=== PATIENT | male | born 1955 | race African-American/Black ===

== ENCOUNTER 2017-11-16 08:31 | Inpatient (IN) | payer SELFPAY ==
[2017-11-16 09:06] LABS: ADD MAN DIFF? NO
[2017-11-16] MEDS: IPRATRPIUM/ALBUTEROL 0.5/2.5MG 3 ML NEBU. NEB ×4 (09:06→19:14)
[2017-11-16 09:08] LABS: BASO % 0 % (0-3); EOS % 0 % (0-3); HEMOGLOBIN 13.2 g/dL (13.0-17.5); LYMPH # 2.7 x10^3/uL (1.0-4.8); LYMPH % 16 % (24-48); MEAN CORPUSCULAR HEMOGLOBIN 31 pg (25-35); MEAN CORPUSCULAR HGB CONC 35 g/dL (31-37); MEAN CORPUSCULAR VOLUME 89 fL (79-100); MONO # 1.8 x10^3/uL (0.0-1.1); MONO % 11 % (0-9); NEUT # 11.8 x10^3uL (1.8-7.7); NEUT % 72 % (31-73); PLATELET COUNT 487 x10^3/uL (140-400); RED BLOOD COUNT 4.24 x10^6/uL (4.30-5.70); RED CELL DISTRIBUTION WIDTH 15.1 % (11.5-14.5); WHITE BLOOD COUNT 16.4 x10^3/uL (4.0-11.0)
[2017-11-16 09:22] LABS: ANION GAP 15 (6-14); BLOOD UREA NITROGEN 16 mg/dL (8-26); BUN/CREATININE RATIO 18 (6-20); CALCIUM 9.2 mg/dL (8.5-10.1); CARBON DIOXIDE 22 mmol/L (21-32); CHLORIDE 98 mmol/L (98-107); CREATININE 0.9 mg/dL (0.7-1.3); GFR 85.2; GLUCOSE 170 mg/dL (70-99); POTASSIUM 3.6 mmol/L (3.5-5.1); SODIUM 135 mmol/L (136-145)
[2017-11-16 09:28] LABS: ALBUMIN 2.3 g/dL (3.4-5.0); ALBUMIN/GLOBULIN RATIO 0.4 (1.0-1.7); ALK PHOS 169 U/L (46-116); ALT (SGPT) 24 U/L (16-63); AST (SGOT) 40 U/L (15-37); TOTAL BILIRUBIN 1.4 mg/dL (0.2-1.0); TOTAL PROTEIN 8.8 g/dL (6.4-8.2)
[2017-11-16 09:30] LABS: LACTIC ACID 2.3 mmol/L (0.4-2.0)
[2017-11-16 09:34] LABS: NT-PRO BNP 367 pg/mL (0-124)
[2017-11-16 09:34] LABS: INFLUENZA A PATIENT NEGATIVE (NEGATIVE); INFLUENZA B PATIENT NEGATIVE (NEGATIVE); OBC FLU VALID
[2017-11-16 09:38] LABS: TROPONINI < 0.017 ng/mL (0.000-0.055)
[2017-11-16] MEDS: ACETAMINOPHEN 325 MG TABLET. PO (09:41)
[2017-11-16] MEDS: methylPREDNISolone SOD SUCC PF 125 MG/2 ML VIAL. IV (09:43)
[2017-11-16] MEDS: IV NORMAL SALINE 1000ML BAG 1,000 ML IV ×3 (09:44→12:37)
[2017-11-16] MEDS ORDERED: ONDANSETRON PF 4 MG/2 ML VIAL. IV (10:00)
[2017-11-16] MEDS ORDERED: ACETAMINOPHEN 325 MG TABLET. PO (10:00)
[2017-11-16 10:17] LABS: BASE EXCESS ABG 0 mmol/L (-3-3); HCO3 ABG 23 mmol/L (21-28); PCO2 ABG 34 mmHg (35-46); PH ABG 7.45 (7.35-7.45); PO2 ABG 105 mmHg (65-108); SAT O2 ABG 98 % (92-99)
[2017-11-16 10:18] LABS: FIO2 ABG 40
[2017-11-16] MEDS: AZITHRMYCN 500MG IVPB FOR OMNI 250 ML IV (10:55)
[2017-11-16 12:16] LABS: LACTIC ACID 1.7 mmol/L (0.4-2.0)
[2017-11-16 13:40] LABS: BILIRUBIN,URINE SMALL (NEG); CLARITY,URINE CLEAR; COLOR,URINE AMBER; GLUCOSE,URINE 100 mg/dL (NEG); NITRITE,URINE NEGATIVE (NEG); PROTEIN,URINE 100 mg/dL (NEG-TRACE)
[2017-11-16 13:49] LABS: BACTERIA,URINE FEW /HPF (0-FEW); SQUAMOUS EPITHELIAL CELL,UR FEW /LPF; WBC,URINE OCC /HPF (0-4)
[2017-11-16 13:50] LABS: HYALINE CASTS, URINE MODERATE /HPF
[2017-11-16] MEDS: LISINOPRIL 5 MG TABLET. PO (18:11)
[2017-11-16] MEDS: ENOXAPARIN 40 MG/0.4 ML SYRINGE. SQ (18:12)
[2017-11-16] MEDS: BUDESONIDE 0.5 MG/2 ML NEBU. NEB (19:14)
[2017-11-16] MEDS ORDERED: METOPROLOL SUCC 24HR ER 25 MG TAB.ER.24H. PO (20:30)
[2017-11-16] MEDS: amLODIPine BESYLATE 2.5 MG TABLET PO (20:59)
[2017-11-17] MEDS: ALBUTEROL SULFATE 2.5 MG/3 ML NEBU. NEB ×3 (01:14→20:47)
[2017-11-17] MEDS: AZITHROMYCIN 250 MG TABLET. PO (08:12)
[2017-11-17] MEDS: amLODIPine BESYLATE 2.5 MG TABLET PO (08:12)
[2017-11-17] MEDS: LISINOPRIL 5 MG TABLET. PO (08:12)
[2017-11-17] MEDS: LACTOBACILLUS RHAMNOSUS GG 1 CAPSULE. PO ×2 (08:12→21:02)
[2017-11-17] MEDS: IPRATRPIUM/ALBUTEROL 0.5/2.5MG 3 ML NEBU. NEB ×2 (09:09→16:36)
[2017-11-17] MEDS: BUDESONIDE 0.5 MG/2 ML NEBU. NEB ×2 (09:09→20:47)
[2017-11-17] MEDS: cefTRIAXone IV Push 1 GM VIAL. IVP (10:12)
[2017-11-17 11:58] LABS: MAGNESIUM 2.4 mg/dL (1.8-2.4)
[2017-11-17] MEDS ORDERED: PIP/TAZO PER PHARMACY MC (13:30)
[2017-11-17] MEDS: PIPERACILLIN/TAZOBACTAM 3.375 GM in IV NORMAL SALINE 50ML 50 ML IV ×3 (13:47→23:26)
[2017-11-17] MEDS: LORazepam 0.5 MG TABLET PO (17:54)
[2017-11-17] MEDS: ENOXAPARIN 40 MG/0.4 ML SYRINGE. SQ (17:55)
[2017-11-17] MEDS: ZOLPIDEM 5 MG TABLET. PO (21:02)
[2017-11-18] MEDS: ALBUTEROL SULFATE 2.5 MG/3 ML NEBU. NEB ×5 (04:30→19:23)
[2017-11-18] MEDS: PIPERACILLIN/TAZOBACTAM 3.375 GM in IV NORMAL SALINE 50ML 50 ML IV ×4 (05:14→23:16)
[2017-11-18] MEDS ORDERED: PNEUMOCOCCAL VAX SCREEN BY RX. MC (05:15)
[2017-11-18] MEDS ORDERED: INFLUENZA VAX SCREEN BY RX. MC (05:15)
[2017-11-18 05:20] LABS: ADD MAN DIFF? NO
[2017-11-18 05:37] LABS: BASO % 0 % (0-3); EOS % 0 % (0-3); HEMATOCRIT 34.2 % (39.0-53.0); HEMOGLOBIN 11.6 g/dL (13.0-17.5); LYMPH # 2.4 x10^3/uL (1.0-4.8); LYMPH % 19 % (24-48); MEAN CORPUSCULAR HEMOGLOBIN 31 pg (25-35); MEAN CORPUSCULAR HGB CONC 34 g/dL (31-37); MEAN CORPUSCULAR VOLUME 90 fL (79-100); MONO # 1.1 x10^3/uL (0.0-1.1); MONO % 9 % (0-9); NEUT # 9.1 x10^3uL (1.8-7.7); NEUT % 71 % (31-73); PLATELET COUNT 408 x10^3/uL (140-400); RED BLOOD COUNT 3.81 x10^6/uL (4.30-5.70); RED CELL DISTRIBUTION WIDTH 15.2 % (11.5-14.5); WHITE BLOOD COUNT 12.7 x10^3/uL (4.0-11.0)
[2017-11-18 05:57] LABS: ANION GAP 7 (6-14); BLOOD UREA NITROGEN 16 mg/dL (8-26); CALCIUM 8.4 mg/dL (8.5-10.1); CARBON DIOXIDE 27 mmol/L (21-32); CHLORIDE 100 mmol/L (98-107); CREATININE 0.8 mg/dL (0.7-1.3); GFR 118.1; GLUCOSE 167 mg/dL (70-99); POTASSIUM 3.9 mmol/L (3.5-5.1); SODIUM 134 mmol/L (136-145)
[2017-11-18] MEDS: BUDESONIDE 0.5 MG/2 ML NEBU. NEB ×2 (07:03→19:22)
[2017-11-18 08:59] LABS: INR 1.1 (0.8-1.1); PARTIAL THROMBOPLASTIN TIME 29 SEC (24-38); PROTHROMBIN TIME PATIENT 13.3 SEC (11.7-14.0)
[2017-11-18] MEDS ORDERED: LIDOCAINE WITH 8.4% SOD BICARB 3 ML DISP.SYRIN. (11:16)
[2017-11-18] MEDS ORDERED: GELATIN SPONGE SIZE 12-7MM SPONGE. (11:17)
[2017-11-18] MEDS ORDERED: MIDAZOLAM HCL/PF 2 MG/2 ML VIAL. (11:28)
[2017-11-18] MEDS ORDERED: fentaNYL PF VIAL 100 MCG/2 ML VIAL (11:28)
[2017-11-18] MEDS: LIDOCAINE WITH 8.4% SOD BICARB 3 ML DISP.SYRIN. INJ (11:30)
[2017-11-18] MEDS: MIDAZOLAM HCL/PF 2 MG/2 ML VIAL. IV (11:45)
[2017-11-18] MEDS: fentaNYL PF VIAL 100 MCG/2 ML VIAL IV (11:45)
[2017-11-18] MEDS: amLODIPine BESYLATE 2.5 MG TABLET PO (13:12)
[2017-11-18] MEDS: LISINOPRIL 5 MG TABLET. PO (13:12)
[2017-11-18] MEDS: LACTOBACILLUS RHAMNOSUS GG 1 CAPSULE. PO ×2 (13:12→21:32)
[2017-11-18] MEDS: AZITHROMYCIN 250 MG TABLET. PO (13:13)
[2017-11-18 15:27] LABS: AFPT MARKER 2.6 ng/mL (0.0-8.3)
[2017-11-18] MEDS: GADOBUTROL 10 MMOL/10 ML VIAL IV (16:45)
[2017-11-18] MEDS: ENOXAPARIN 40 MG/0.4 ML SYRINGE. SQ (18:34)
[2017-11-18] MEDS: FLU VACC QS2017-18 (36MOS+)/PF 0.5 ML SYRINGE. VAX IM (18:35)
[2017-11-18] MEDS: PNEUMOC CONJ VACC 23-VALENT 0.5 ML VIAL. VAX IM (18:38)
[2017-11-18] MEDS: ACETAMINOPHEN 325 MG TABLET. PO (19:06)
[2017-11-18] MEDS: LORazepam 0.5 MG TABLET PO (21:32)
[2017-11-18] MEDS: ZOLPIDEM 5 MG TABLET. PO (21:32)
[2017-11-18] MEDS: LABETALOL 20 MG/4 ML DISP.SYRIN. IVP (21:40)
[2017-11-19 05:13] LABS: ADD MAN DIFF? NO
[2017-11-19 05:18] LABS: BASO % 0 % (0-3); EOS % 0 % (0-3); HEMOGLOBIN 12.4 g/dL (13.0-17.5); LYMPH # 2.7 x10^3/uL (1.0-4.8); LYMPH % 23 % (24-48); MEAN CORPUSCULAR HEMOGLOBIN 32 pg (25-35); MEAN CORPUSCULAR HGB CONC 35 g/dL (31-37); MEAN CORPUSCULAR VOLUME 91 fL (79-100); MONO # 1.2 x10^3/uL (0.0-1.1); MONO % 10 % (0-9); NEUT # 7.7 x10^3uL (1.8-7.7); NEUT % 66 % (31-73); PLATELET COUNT 400 x10^3/uL (140-400); RED BLOOD COUNT 3.94 x10^6/uL (4.30-5.70); RED CELL DISTRIBUTION WIDTH 15.1 % (11.5-14.5); WHITE BLOOD COUNT 11.6 x10^3/uL (4.0-11.0)
[2017-11-19] MEDS: PIPERACILLIN/TAZOBACTAM 3.375 GM in IV NORMAL SALINE 50ML 50 ML IV ×2 (05:44→13:15)
[2017-11-19 05:56] LABS: ANION GAP 11 (6-14); BLOOD UREA NITROGEN 17 mg/dL (8-26); CALCIUM 8.2 mg/dL (8.5-10.1); CARBON DIOXIDE 22 mmol/L (21-32); CHLORIDE 101 mmol/L (98-107); CREATININE 0.9 mg/dL (0.7-1.3); GFR 103.1; GLUCOSE 174 mg/dL (70-99); POTASSIUM 4.3 mmol/L (3.5-5.1); SODIUM 134 mmol/L (136-145)
[2017-11-19] MEDS: BUDESONIDE 0.5 MG/2 ML NEBU. NEB ×2 (08:18→19:17)
[2017-11-19] MEDS: ALBUTEROL SULFATE 2.5 MG/3 ML NEBU. NEB ×4 (08:18→19:17)
[2017-11-19] MEDS: LACTOBACILLUS RHAMNOSUS GG 1 CAPSULE. PO ×2 (08:54→22:49)
[2017-11-19] MEDS: AZITHROMYCIN 250 MG TABLET. PO (08:55)
[2017-11-19] MEDS: amLODIPine BESYLATE 2.5 MG TABLET PO (08:56)
[2017-11-19] MEDS: LISINOPRIL 5 MG TABLET. PO (08:56)
[2017-11-19] MEDS: ENOXAPARIN 40 MG/0.4 ML SYRINGE. SQ (16:44)
[2017-11-19] MEDS: ACETAMINOPHEN 325 MG TABLET. PO (22:49)
[2017-11-19] MEDS: LORazepam 0.5 MG TABLET PO (22:49)
[2017-11-19] MEDS: ZOLPIDEM 5 MG TABLET. PO (22:49)
[2017-11-19] MEDS: LABETALOL 20 MG/4 ML DISP.SYRIN. IVP (23:51)
[2017-11-20 05:17] LABS: BASO % 0 % (0-3); EOS # 0.1 x10^3/uL (0.0-0.7); EOS % 1 % (0-3); HEMATOCRIT 36.6 % (39.0-53.0); HEMOGLOBIN 12.1 g/dL (13.0-17.5); LYMPH # 2.6 x10^3/uL (1.0-4.8); LYMPH % 29 % (24-48); MEAN CORPUSCULAR HEMOGLOBIN 30 pg (25-35); MEAN CORPUSCULAR HGB CONC 33 g/dL (31-37); MEAN CORPUSCULAR VOLUME 92 fL (79-100); MONO % 11 % (0-9); NEUT # 5.4 x10^3uL (1.8-7.7); NEUT % 59 % (31-73); PLATELET COUNT 406 x10^3/uL (140-400); RED CELL DISTRIBUTION WIDTH 15.4 % (11.5-14.5); WHITE BLOOD COUNT 9.1 x10^3/uL (4.0-11.0)
[2017-11-20 05:29] LABS: ANION GAP 8 (6-14); BLOOD UREA NITROGEN 18 mg/dL (8-26); CALCIUM 8.7 mg/dL (8.5-10.1); CARBON DIOXIDE 24 mmol/L (21-32); CHLORIDE 99 mmol/L (98-107); CREATININE 0.9 mg/dL (0.7-1.3); GFR 103.1; GLUCOSE 213 mg/dL (70-99); POTASSIUM 4.4 mmol/L (3.5-5.1); SODIUM 131 mmol/L (136-145)
[2017-11-20 06:22] LABS: ADD MAN DIFF? YES
[2017-11-20] MEDS: BUDESONIDE 0.5 MG/2 ML NEBU. NEB (08:06)
[2017-11-20] MEDS: ALBUTEROL SULFATE 2.5 MG/3 ML NEBU. NEB ×2 (08:06→12:06)
[2017-11-20] MEDS: LACTOBACILLUS RHAMNOSUS GG 1 CAPSULE. PO (09:07)
[2017-11-20] MEDS: LISINOPRIL 5 MG TABLET. PO (09:07)
[2017-11-20] MEDS: amLODIPine BESYLATE 2.5 MG TABLET PO (09:08)
[2017-11-20 09:42] LABS: % BANDS 9 % (0-9); % BASOS 1 % (0-3); % EOS 4 % (0-5); % LYMPHS 34 % (24-48); % MONOS 5 % (0-10); % MYELOS 1 % (0-0); % SEGS 46 % (35-66); PLT ESTIMATE ADEQUATE (ADEQUATE)
== END 2017-11-20 16:00 | disposition home or self-care (01) | DRG 871 ==
LOC: ER 08:31 → ED HOLD 09:28 → 2 NORTH 11:38
PROC: 5A09357 Assistance with Respiratory Ventilation, Less than 24 Consecutive Hours, Continuous Positive Airway Pressure (ICD-10-PCS; 2017-11-16)
PROC: 0FB23ZX Excision of Left Lobe Liver, Percutaneous Approach, Diagnostic (ICD-10-PCS; principal; 2017-11-18)
PROC: 0FB13ZX Excision of Right Lobe Liver, Percutaneous Approach, Diagnostic (ICD-10-PCS; 2017-11-18)
DX: A41.9 Sepsis, unspecified organism (principal); E43 Unspecified severe protein-calorie malnutrition; J96.01 Acute respiratory failure with hypoxia; J44.0 Chronic obstructive pulmonary disease with (acute) lower respiratory infection; J12.9 Viral pneumonia, unspecified; J44.1 Chronic obstructive pulmonary disease with (acute) exacerbation; R16.0 Hepatomegaly, not elsewhere classified; E66.9 Obesity, unspecified; Z68.31 Body mass index [BMI] 31.0-31.9, adult; I10 Essential (primary) hypertension; Z90.49 Acquired absence of other specified parts of digestive tract; F17.210 Nicotine dependence, cigarettes, uncomplicated
CPT/HCPCS: 36415; 36600; 47000; 71045; 71250; 72197; 74183; 76705; 76942; 80048; 80053; 81001; 82105; 82805; 83605; 83735; 83880; 84484; 85007; 85025; 85610; 85730; 87040; 87804; 87804-59; 88307; 88313; 90686; 90732; 93005; 94618; 94640; 94660; 94760; 97165-GO; 99152; 99285; A9585; J0456; J0690; J0696; J1650; J2250; J2543; J2930; J3010; J3490; J7030; J7613; J7620; J7626; Q0144

== ENCOUNTER 2021-03-01 20:56 | Emergency (ER) | payer MEDICARE ==
[~2021-03-01] VITALS: Ht 182.9 cm; Wt 82.7 kg
[~2021-03-01 20:56] MED LIST: BENZ100C PO; LEVO500T59 PO; LISI-517 PO
[2021-03-01] MEDS ORDERED: MIDAZOLAM 100mg/100ml NS BAG 100 ML IV ONE (21:30)
--- NOTE | 2021-03-01 21:40 | PHYS DOC ---
Past Medical History Past Medical History: Hypertension Past Surgical History: Appendectomy, Other Additional Past Surgical Histo: right leg fracture repair Smoking Status: Former Smoker Alcohol Use: None Drug Use: None General Adult EDM: Chief Complaint: ALTERED MENTAL STATUS HPI: HPI: Patient is a 65-year-old male presenting via EMS for respiratory failure. Little is known about the patient besides he has known liver cancer and is treated at . Patient was called by family members after patient reportedly collapsed at home and had shallow concerning breathing. EMS arrived to scene, was 70% on room air and so supplemental oxygen via nasal cannula and subseque ntly escalated to nonrebreather utilized and patient transferred to [facility]. Nonetheless, due to no improvement in can condition and need for emergent stabilization, patient presented to our ER. On arrival, patient on nonrebreather at 15 L with saturations in the 70s. He is not protecting his airway. Little history is obtained from him. As far as we know, he is a full code per EMS Review of Systems: Review of Systems: Unobtainable due to patient condition Heart Score: C/O Chest Pain: N/A Risk Factors: Risk Factors: DM, Current or recent (<one month) smoker, HTN, HLP, family history of CAD, obesity. Risk Scores: Score 0 - 3: 2.5% MACE over next 6 weeks - Discharge Home Score 4 - 6: 20.3% MACE over next 6 weeks - Admit for Clinical Observation Score 7 - 10: 72.7% MACE over next 6 weeks - Early Invasive Strategies Current Medications: Current Medications Medications (Trade) Dose Ordered Sig/Logan Start Time Stop Time Status Last Admin Dose Admin Midazolam HCl 100 ml @ 1 mls/hr 1X ONCE 03/01/21 21:30 03/06/21 01:29 Allergies: Allergies: Allergies Coded Allergies Type Severity Reaction Last Updated Verified No Known Drug Allergies 11/16/17 No Physical Exam: PE: Constitutional: Ill-appearing patient in obvious respiratory distress, appears cyanotic with shallow breathing, appears extremely ill and in critical condition with poor hygiene HEENT: Head: Normocephalic and atraumatic. TMs clear, no hemotympanum Conjunctivae and EOM are normal. Pupils are equal, round, and reactive to light. Oropharynx is clear and dry with poor dentition No hematomas or lacerations or abrasions to face or scalp OP clear, no blood, no malocclusion, dentition intact Nares clear, no nasal septal hematoma Midface stable Neck: C-spine midline nontender, no step-offs Cardiovascular: Tachycardic otherwise, regular rhythm and normal heart sounds. Pulmonary/Chest: Obvious respiratory failure with cyanosis most prominent in lips and ears, accessory muscle use of neck and abdomen noted, diminished breath sounds bilaterally Abdominal: Soft but enlarged with palpable fluid wave. Bowel sounds are normal. Pt exhibits no distension. There is no tenderness. Musculoskeletal: No appreciable bony tenderness to extremities, no deformities, full passive ROM extremities Chest wall stable Pelvis stable and non-tender No vertebral TTP and spine without stepoffs Neurological: GCS 4 (E1, V1, M4) Spontaneously moving fingers and toes at times but not following commands Not alert or oriented Motor and sensory function grossly intact Skin: Skin is cyanotic, cool and dry. No abrasions, no lacerations Psychiatric: Unable to assess Current Patient Data: Labs: Laboratory Tests Test 03/01/21 21:15 03/01/21 21:35 03/01/21 21:55 03/01/21 22:15 Magnesium Level 3.1 mg/dL White Blood Count 5.6 x10^3/uL Red Blood Count 4.79 x10^6/uL Hemoglobin 15.2 g/dL Hematocrit 47.4 % Mean Corpuscular Volume 99 fL Mean Corpuscular Hemoglobin 32 pg Mean Corpuscular Hemoglobin Concent 32 g/dL Red Cell Distribution Width 14.9 % Platelet Count 307 x10^3/uL Neutrophils (%) (Auto) 81 % Lymphocytes (%) (Auto) 13 % Monocytes (%) (Auto) 6 % Eosinophils (%) (Auto) 0 % Basophils (%) (Auto) 0 % Neutrophils # (Auto) 4.5 x10^3/uL Lymphocytes # (Auto) 0.7 x10^3/uL Monocytes # (Auto) 0.3 x10^3/uL Eosinophils # (Auto) 0.0 x10^3/uL Basophils # (Auto) 0.0 x10^3/uL Prothrombin Time 16.9 SEC Prothromb Time International Ratio 1.4 Activated Partial Thromboplast Time 33 SEC Sodium Level 132 mmol/L Potassium Level 5.3 mmol/L Chloride Level 95 mmol/L Carbon Dioxide Level 16 mmol/L Anion Gap 21 Blood Urea Nitrogen 42 mg/dL Creatinine 2.6 mg/dL Estimated GFR (Cockcroft-Gault) 24.7 BUN/Creatinine Ratio 16 Glucose Level 542 mg/dL Lactic Acid Level 11.8 mmol/L Calcium Level 9.6 mg/dL Total Bilirubin 1.4 mg/dL Aspartate Amino Transf (AST/SGOT) 196 U/L Alanine Aminotransferase (ALT/SGPT) 147 U/L Alkaline Phosphatase 141 U/L Ammonia < 10 mcmol/L Troponin I Quantitative 0.052 ng/mL Total Protein 7.3 g/dL Albumin 3.1 g/dL Albumin/Globulin Ratio 0.7 Salicylates Level < 2.8 mg/dL Salicylate Last Dose Date Unknown Salicylate Last Dose Time Unknown Acetaminophen Level < 2 mcg/ml Acetaminophen Last Dose Date Unknown Acetaminophen Last Dose Time Unknown Ethyl Alcohol Level < 10 mg/dL Acetone Level Neg Urine Collection Type U cath Urine Color Yellow Urine Clarity Clear Urine pH 5.5 Urine Specific [place] >=1.030 Urine Protein 30 mg/dL Urine Glucose (UA) >=1000 mg/dL Urine Ketones (Stick) Trace mg/dL Urine Blood Large Urine Nitrite Negative Urine Bilirubin Negative Urine Urobilinogen Dipstick 0.2 mg/dL Urine Leukocyte Esterase Negative Urine RBC 11-20 /HPF Urine WBC 0 /HPF Urine Transitional Epithelial Cells Few /LPF Urine Bacteria 0 /HPF Urine Hyaline Casts Few /HPF Urine Mucus Slight /LPF Urine Opiates Screen Pos Urine Methadone Screen Neg Urine Barbiturates Neg Urine Phencyclidine Screen Neg Urine Amphetamine/Methamphetamine Pos Urine Benzodiazepines Screen Neg Urine Cocaine Screen Neg Urine Cannabinoids Screen Neg Urine Ethyl Alcohol Neg O2 Saturation 100 % Arterial Blood pH 7.14 Arterial Blood pCO2 at Patient Temp 39 mmHg Arterial Blood pO2 at Patient Temp > 503 mmHg Arterial Blood HCO3 13 mmol/L Arterial Blood Base Excess -15 mmol/L FiO2 100 Current Medications Medications (Trade) Dose Ordered Sig/Logan Route PRN Reason Start Time Stop Time Status Last Admin Dose Admin Midazolam HCl 100 ml @ 1 mls/hr 1X ONCE IV 03/01/21 21:30 03/06/21 01:29 Insulin Human Regular (HumuLIN R VIAL) 8 unit 1X ONCE IV 03/01/21 23:30 03/01/21 23:31 DC Potassium Chloride/Sodium Chloride 1,000 ml @ 300 mls/hr Q3H20M IV 03/01/21 23:30 03/02/21 02:49 Insulin Human Regular 100 unit/ Sodium Chloride 101 ml @ 0 mls/hr CONT PRN IV SEE I/O RECORD 03/01/21 23:15 Dextrose (Dextrose 50%-Water Syringe) 12.5 gm PRN Q15MIN PRN IV LOW BLOOD SUGAR 03/01/21 23:15 Sodium Bicarbonate (Sodium Bicarbonate Vial) 150 meq 1X ONCE IV 03/02/21 00:00 03/02/21 00:01 DC 03/02/21 00:19 Midazolam HCl 50 mg/Sodium Chloride 50 ml @ 0 mls/hr 1X ONCE IV 03/02/21 00:00 03/02/21 00:01 UNV Fentanyl Citrate (Fentanyl 2ml Vial) 50 mcg 1X ONCE IVP 03/02/21 01:30 03/02/21 01:31 03/02/21 01:03 Fentanyl Citrate (Fentanyl 2ml Vial) 50 mcg 1X ONCE IVP 03/02/21 01:30 03/02/21 01:31 Sodium Chloride 1,000 ml @ 1,000 mls/hr 1X ONCE IV 03/02/21 01:30 03/02/21 02:29 Sodium Chloride 500 ml @ 500 mls/hr 1X ONCE IV 03/02/21 02:30 03/02/21 03:29 Sodium Chloride 1,000 ml @ 1,000 mls/hr 1X ONCE IV 03/02/21 01:15 03/02/21 02:14 Etomidate (Amidate) 30 mg 1X ONCE IV 03/02/21 01:15 03/02/21 01:16 UNV Rocuronium [place] (Zemuron) 120 mg 1X ONCE IV 03/02/21 01:15 03/02/21 01:16 UNV Vital Signs: Vital Signs Date Time Temp Pulse Resp B/P (MAP) Pulse Ox O2 Delivery O2 Flow Rate FiO2 03/01/21 21:05 98 Ventilator EKG: EKG: EKG ordered and interpreted by myself 2120 hrs. as sinus tachycardia 122 bpm, unremarkable intervals, no axis deviation, no acute ischemic findings, no STEMI Radiology/Procedures: Radiology/Procedures: XR CHEST 1V, XR ABDOMEN 1V Clinical Indication: Reason: post-intubation / Comparison: AP chest November 16, 2017. Findings: There is endotracheal tube, tip is 4.6 cm superior to the bar. Enteric tube is coiled in the stomach. The cardiomediastinal silhouette is normal. Lungs are clear. There is no pneumothorax. No pleural effusion is appreciated. No acute bone abnormality. There is air in the stomach. There are a few mildly dilated small bowel loops. Scattered and stool in the colon. The pelvis is not imaged. Nonspecific calcification right upper abdomen. There is severe degenerative endplate spurring of the thoracolumbar spine. IMPRESSION: 1. Tubes and lines in appropriate position. 2. The lungs are clear. 3. There are a few mildly dilated small bowel loops suggesting partial obstruction or enteritis. Electronically signed by: Rafi Foley MD (03/01/2021 10:23 PM) [facility] Course & Med Decision Making: Course & Med Decision Making Patient presenting in acute respiratory failure Airway not secured with failure to oxygenate and ventilate and so, patient was emergently intubated without complications. Airway adequately stabilized, breathing and subsequent oxygenation/ventilation improved. Vitals reobtained, left ultrasound-guided IJ central venous line placed without complications HPI obviously limited. Physical examination showing no obvious deformities or abnormalities. ER work-up ensued OG tube placed with approximately 600ml bloody appearing material suctioned out. Negron catheter placed, a total of 20 mill urine output observed throughout entirety of ER visit , daughter and sister arrived to ER and provided better history. Reports patient had recent "liver cancer procedure" performed approximately 72 hours ago and ever since has had uncontrolled pain, not been eating and not been taking his home medications. Had not been breathing well all day per . Reportedly was ambulating in the house when he doubled over and lowered himself to the ground, per who observe this states he did not hit his head or lose consciousness but was "not breathing well "prompting her to call EMS I reviewed entirety of ER work-up with all family members present. I discussed severity of situation and critical condition of the patient. I discussed need for continued medical management of numerous conditions and hospitalization. Th ey requested transfer to [facility] I contacted [facility] and reviewed need for transfer given patient family request and fact that patient's specialists such as oncologist, liver transplant specialist etc. all manage him at [facility]. Patient was subsequently admitted under the care of Dr. Nguyen Prior to departure, intervention provided included a total of 2500 mL IV normal saline bolus with improvement in blood pressure, half-normal saline with 40 mEq potassium started with subsequent 8 units IV insulin bolus and insulin drip at 8 units an hour for patient's DKA A one-to-one bicarb drip and respiratory rate on ventilator increased from 20-->28 to address patient's profoundly acidotic status EMS arrived for transport of patient prior to obtaining further CT head and neck imaging, administration of IV Protonix etc. Patient family updated on plan of care that included hospital transfer to [facility] f or admission, they reiterate that patient is to remain a full code at this time until they discuss with other family members and [facility] attendings. They are aware of patient's critical status Critical Care Time This patient required critical care. Due to the fact that the patient required a significant amount of one on one physician - patient contact time, ordering and review of studies, arranging urgent treatment with development of a management plan, evaluation of patients response to treatment with frequent reassessments, and discussions with other providers this patient required 75 minutes of critical care time. Critical care time was indicated due to the inherent instability and/or potential for instability in this patient. The critical care time that is allocated to this patient is above and beyond any time spent on any other billable procedures performed on this patient. Mirifice Disclaimer: Mirifice Disclaimer: This electronic medical record was generated, in whole or in part, using a voice recognition dictation system. Central Line Central Line : Central Line Lumen: triple Central Line Procedure: betadine prep, sterile drapes applied, sterile dressing applied Central Line Postion: internal jugular (L) Complications: none Central Line Post Position: sutured, good blood return, position confirmed w/ CXR Progress No family member present to consent for central line. Medical necessity. Appropriate sterile field obtained after Betadine prep of the left jugular area. Ultrasound was used to identify left internal jugular vein, vessel was entered with visual confirmation via ultrasound. Salinger technique performed and triple-lumen central line was placed in satisfactory position with positive blood return and x3 ports. Line was sutured in place, Tegaderm applied, postprocedural chest x-ray obtained and confirmed proper position of central venous line without complications. Minimal 1 cc blood loss reported Intubation Intubation : Intubation Method: nasotracheal Tube Size (cm): 7.5 Breath Sounds after Intubation: equal Intubation Complications: no complications Post Intubation Xray: Yes Progress No family member present, full code until proven otherwise, medical necessity and emergent consent implied Patient was not oxygenating or ventilating. IV access was obtained and based on estimated weight of patient 30 of etomidate and subsequent 120 of rocuronium utilized for sedation and paralysis respectfully. A MAC 3 blade was used and cords were visualized. A 7.5 ETT was visualized passing through cords on first attempt without complication and placed at 22 at the teeth. Cuff was inflated, CO2 color change positive, chest was auscultated with bilateral chest rise and auscultation of breath sounds equally, postprocedural chest x-ray obtained and confirmed adequate placement of ETT. There were no complications. Total time of procedure was <20 seconds NG Lavage NG Lavage : NG Lavage: bloody Progress OG tube placed with approximately 600ml dark red/blood appearing material extracted Departure Departure Impression: Primary Impression: Acute respiratory failure with hypoxia Additional Impressions: DKA (diabetic ketoacidoses) Liver cancer Drug abuse, amphetamine type Disposition: 02 [facility] ([facility]) Admitting Physician: SALO FELIX) Condition: STABLE Referrals: AARTI ALVARADO (PCP) ALYSSA HOOPER DO March 01, 2021 21:40
[2021-03-01 21:48] LABS: BASO % 0 % (0-3); EOS % 0 % (0-3); HEMATOCRIT 47.4 % (39.0-53.0); HEMOGLOBIN 15.2 g/dL (13.0-17.5); LYMPH # 0.7 x10^3/uL (1.0-4.8); LYMPH % 13 % (24-48); MEAN CORPUSCULAR HEMOGLOBIN 32 pg (25-35); MEAN CORPUSCULAR HGB CONC 32 g/dL (31-37); MEAN CORPUSCULAR VOLUME 99 fL (79-100); MONO # 0.3 x10^3/uL (0.0-1.1); MONO % 6 % (0-9); NEUT # 4.5 x10^3/uL (1.8-7.7); NEUT % 81 % (31-73); PLATELET COUNT 307 x10^3/uL (140-400); RED BLOOD COUNT 4.79 x10^6/uL (4.30-5.70); RED CELL DISTRIBUTION WIDTH 14.9 % (11.5-14.5); WHITE BLOOD COUNT 5.6 x10^3/uL (4.0-11.0)
[2021-03-01 22:04] LABS: ALBUMIN 3.1 g/dL (3.4-5.0); ALBUMIN/GLOBULIN RATIO 0.7 (1.0-1.7); CALCIUM 9.6 mg/dL (8.5-10.1); CREATININE 2.6 mg/dL (0.7-1.3); GFR 24.7; POTASSIUM 5.3 mmol/L (3.5-5.1); TOTAL BILIRUBIN 1.4 mg/dL (0.2-1.0); TOTAL PROTEIN 7.3 g/dL (6.4-8.2)
[2021-03-01 22:22] LABS: BILIRUBIN,URINE NEGATIVE (NEG); CLARITY,URINE CLEAR; COLOR,URINE YELLOW; NITRITE,URINE NEGATIVE (NEG); PH,URINE 5.5 (<5.0-8.0); PROTEIN,URINE 30 mg/dL (NEG-TRACE); UROBILINOGEN,URINE 0.2 mg/dL (0.2 mg/dL)
--- NOTE | 2021-03-01 22:26 | RAD ---
XR CHEST 1V, XR ABDOMEN 1V Clinical Indication: Reason: post-intubation / Comparison: AP chest November 16, 2017. Findings: There is endotracheal tube, tip is 4.6 cm superior to the bar. Enteric tube is coiled in the stoma ch. The cardiomediastinal silhouette is normal. Lungs are clear. There is no pneumothorax. No pleural ef fusion is appreciated. No acute bone abnormality. There is air in the stomach. There are a few mildly dilated small bowel loops. Scattered and stool in the colon. The pelvis is not imaged. Nonspecific calcification right upper abdomen. There is severe degenerative endplate spurring of the thoracolumbar spine. IMPRESSION: 1. Tubes and lines in appropriate position. 2. The lungs are clear. 3. There are a few mildly dilated small bowel loops suggesting partial obstruction or enteritis. Electronically signed by: Rafi Foley MD (03/01/2021 10:23 PM) [facility]
--- NOTE | 2021-03-01 22:30 | EKG ---
[facility] [address] [place] [address] Test Date: 2021-03-01 Test Time: 21:19:23 Pat Name: MARCEL SANTAMARIA Department: Room: Gender: M House Rn: : 1955 Requested By: ALYSSA HOOPER Order Number: [id number] Reading MD: Measurements Intervals [place] Rate: 122 P: 63 WA: 154 QRS: 66 QRSD: 78 T: 33 QT: 292 QTc: 417 Interpretive Statements SINUS TACHYCARDIA LEFT ATRIAL ABNORMALITY ABNORMAL ECG RI6.02 No previous ECG available for comparison
[2021-03-01 22:33] LABS: BACTERIA,URINE 0 /HPF (0-FEW); WBC,URINE 0 /HPF (0-4)
[2021-03-01 22:36] LABS: HYALINE CASTS, URINE FEW /HPF
[2021-03-01 22:42] LABS: BASE EXCESS ABG -15 mmol/L (-3-3); HCO3 ABG 13 mmol/L (21-28); PCO2 ABG 39 mmHg (35-46); PO2 ABG > 503 mmHg (65-108); SAT O2 ABG 100 % (92-99)
[2021-03-01 22:48] LABS: BARBITURATES NEG (NEG); BENZODIAZEPINES NEG (NEG); CANNABINOIDS NEG (NEG); COCAINE NEG (NEG); METHADONE NEG (NEG); OPIATES POS (NEG); PHENCYCLIDINE NEG (NEG)
--- NOTE | 2021-03-01 22:52 | RAD ---
XR CHEST 1V INDICATION: POST CENTRAL LINE PLACEMENT . COMPARISON STUDY: 03/01/2021. FINDINGS: Life Support Devices: New left IJ central venous catheter with tip overlying the expected location of the lower SVC. Stable endotracheal and enteric tubes. Lungs: Normal lung volume. Right mid lung linear subsegmental atelectasis. Normal pulmonary vasculatu re. Pleura: No pleural effusion or pneumothorax. Heart and Mediastinum: Stable cardiomediastinal silhouette and great vessels. Bones and Soft Tissues: Stable regional skeleton and soft tissues. IMPRESSION: New left IJ central venous catheter with tip overlying the lower SVC. No pneumothorax. Remaining life support devices are stable. Electronically signed by: Rubens Baker MD (03/01/2021 10:50 PM) [facility]
[2021-03-01 22:53] LABS: ACETAMIN < 2 mcg/ml (10-30); ETHANOL < 10 mg/dL (0-10); SALIC < 2.8 mg/dL (2.8-20.0)
[2021-03-01 22:53] LABS: AMPHETAMINE/METHAMPHETAMINE POS (NEG)
[2021-03-01 23:14] LABS: PROTHROMBIN TIME PATIENT 16.9 SEC (11.7-14.0)
[2021-03-01] MEDS ORDERED: INSULIN REGULAR VIAL 100 UNIT in IV NORMAL SALINE 100ML 100 ML IV PRN (23:15)
[2021-03-01] MEDS ORDERED: DEXTROSE 50% 25 GM / 50ML DISP.SYRIN. IV PRN (23:15)
[2021-03-01] MEDS ORDERED: POTASSIUM CL 20MEQ-0.45% NACL 1,000 ML IV SCH (23:30)
[2021-03-01] MEDS ORDERED: INSULIN REGULAR 100 UNIT/ML 3ML VIAL. IV ONE (23:30)
[2021-03-02] MEDS ORDERED: SODIUM BICARBONATE 50 MEQ/50 ML VIAL. IV ONE
[2021-03-02] MEDS ORDERED: MIDAZOLAM HCL 50 MG in IV NORMAL SALINE 50ML 50 ML IV ONE
[2021-03-02 00:04] LABS: FIO2 ABG 100
[2021-03-02 01:00] VITALS: BP 86/63
[2021-03-02] MEDS ORDERED: ETOMIDATE 20 MG/10 ML VIAL. IV ONE (01:15)
[2021-03-02] MEDS ORDERED: IV NORMAL SALINE 1000ML BAG 1,000 ML IV ONE ×2 (01:15→01:30)
[2021-03-02] MEDS ORDERED: ROCURONIUM 100 MG/10 ML VIAL. IV ONE (01:30)
[2021-03-02] MEDS ORDERED: fentaNYL PF VIAL 100 MCG/2 ML VIAL IVP ONE ×2 (01:30)
[2021-03-02] MEDS ORDERED: fentaNYL PF VIAL 100 MCG/2 ML VIAL ONE (01:34)
[2021-03-02] MEDS ORDERED: ROCURONIUM 50 MG/5 ML VIAL. ONE (01:35)
[2021-03-02] MEDS ORDERED: IV NORMAL SALINE 500ML BAG 500 ML IV ONE (02:30)
== END 2021-03-02 01:25 | disposition short-term general hospital (02) ==
LOC: ER 20:56
DX: J96.01 Acute respiratory failure with hypoxia (principal); E11.10 Type 2 diabetes mellitus with ketoacidosis without coma; C22.9 Malignant neoplasm of liver, not specified as primary or secondary; F15.10 Other stimulant abuse, uncomplicated; I10 Essential (primary) hypertension; Z90.89 Acquired absence of other organs; Z87.891 Personal history of nicotine dependence; Z79.899 Other long term (current) drug therapy
CPT/HCPCS: 31500; 36415; 36556; 36600; 71045; 74018; 80053; 80307; 80329; 81001; 82010; 82140; 82805; 83605; 83735; 84484; 85025; 85610; 85730; 86850; 86900; 86901; 87040; 93005; 96374; 96375; 99291; 99292; G0480; J2250; J3010; J3490; 94002